=== PATIENT | female | born 1990 | race Caucasian/White ===

== ENCOUNTER 2016-11-18 22:06 | Inpatient (IN) | payer OTHER ==
[2016-11-18 22:36] LABS: % IMMATURE GRANULYOCYTES 0.3 % (0.0-1.1); ABSOLUTE IMMATURE GRANULOCYTES 0.02 10^3/uL (0.00-0.10); ADD DIFF? NO; ADD MORPH? NO; ADD SCAN? NO; ATYPICAL LYMPHOCYTE FLAG 20 (0-99); FRAGMENT RBC FLAG 0 (0-99); HEMATOCRIT 45.5 % (38.0-47.0); HEMOGLOBIN 15.4 g/dL (12.6-16.3); LEFT SHIFT FLG 0 (0-99); LIPEMIA HEMOLYSIS FLAG 90 (0-99); MEAN CELL HEMOGLOBIN 32.3 pg (27.9-34.1); MEAN CELL HEMOGLOBIN CONCENTR. 33.8 g/dL (32.4-36.7); MEAN CELL VOLUME 95.4 fL (81.5-99.8); MEAN PLATELET VOLUME 10.3 fL (8.7-11.7); PLATELET CLUMPS FLAG 0 (0-99); PLATELET COUNT 283 10^3/uL (150-400); RED BLOOD CELL COUNT 4.77 10^6/uL (4.18-5.33); RED CELL DISTRIBUTION WIDTH 11.8 % (11.5-15.2)
--- NOTE | 2016-11-18 22:46 | EDPHY ---
H & P Stated Complaint: M1 wrist lac Source: Patient Exam Limitations: No limitations - Personal History LMP (Females 10-55): IUD In [address] - Medical/Surgical History Hx Asthma: No Hx Chronic Respiratory Disease: No Hx Diabetes: No Hx Cardiac Disease: No Hx Renal Disease: No Hx Cirrhosis: No Hx Alcoholism: No Hx HIV/AIDS: No Hx Splenectomy or Spleen Trauma: No Other PMH: depression, - Social History Smoking Status: Never smoked Time Seen by Provider: 11/18/16 22:30 HPI/ROS: HPI The patient presents on an M1 hold for suicidal ideation. The patient has a history of depression for which she takes Zoloft, though has been off of it for the last 1 month. 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 She has had fleeting suicidal thoughts that became more severe this morning. She left her apartment in [place] and drove to [place] to stay at a hotel. At 10:00 a.m., she slit her left wrist with a scalp all. Because of the pain she said she had to stop. She then tried to suffocate herself using a plastic bag. She also took Tylenol 325 mg a total of 20 tabs approximately throughout the day. She eventually fell asleep and awoke when her sister was calling her. Her sister called the crisis Center here and then the patient was brought here to the emergency room. She has previous suicidal thoughts, though no attempts previously. 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 REVIEW OF SYSTEMS Constitutional: No fever, no chills. Eyes: No discharge. ENT: No sore throat. Cardiovascular: No chest pain, no palpitations. Respiratory: No cough, no shortness of breath. Gastrointestinal: No abdominal pain, no vomiting. Genitourinary: No hematuria. Musculoskeletal: No back pain. Skin: No rashes. Neurological: No headache. 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 [employer] PHYSICAL General Appearance: Alert, no distress Eyes: Pupils equal and round no pallor or injection ENT, Mouth: Mucous membranes moist Respiratory: There are no retractions, lungs are clear to auscultation Cardiovascular: Regular rate and rhythm Gastrointestinal: Abdomen is soft and non-tender, no masses, bowel sounds normal Neurological: A&O, moves all extremities Skin: Warm and dry, no rashes Musculoskeletal: Neck is supple non tender Extremities: Left wrist with 4 cm laceration which is gaping, with no active bleeding Psychiatric: Patient is oriented X 3, there is no agitation (Kaitlynn Ramirez) Constitutional: Initial Vital Signs Temperature (C) 36.7 C 11/18/16 22:08 Heart Rate 64 11/18/16 22:08 Respiratory Rate 16 11/18/16 22:08 Blood Pressure 103/69 11/18/16 22:08 O2 Sat (%) 86 L 11/18/16 22:08 O2 Delivery Mode Room Air Allergies/Adverse Reactions: No Known Allergies Allergy (Unverified 11/18/16 22:08) Home Medications: Medication Instructions Recorded Fexofenadine HCl [Lolly Allergy] 60 mg PO DAILY 11/18/16 Sertraline HCl [Zoloft 25mg (*)] 25 mg PO DAILY 11/18/16 Multivitamins [Multivitamin (*)] 1 each PO DAILY 11/19/16 Medical Decision Making Procedures: LACERATION REPAIR Procedure: Laceration repair. Verbal consent was obtained from the patient. The linear 3 cm laceration on the left wrist was anesthetized using lidocaine with epinephrine. The wound was scrubbed, draped and explored to its base with a gloved finger. There were no deep structures involved. No tendon injury was identified. . The wound was repaired with 3 horizontal mattress sutures using 4.0 nylon suture. The wound repair was simple. The procedure was performed by myself. (Kaitlynn Ramirez) ED Course/Re-evaluation: Re-evaluation 7:45 a.m.. Patient is sleeping. Awaiting placement Patient is been evaluated and accepted at [address] for inpatient psychiatric care (Matthew Bejarano) Differential Diagnosis: This is a 26-year-old female, history of depression, who presents on an M1 hold for suicidal ideation, cut her wrists earlier today, took Tylenol, and attempted to suffocate herself. She is currently feeling better. It seems that her social circumstances including lack of sleep, overwhelmed at work, away from support system have worsened her depression and led to increasing suicidal thoughts. Differential diagnosis includes suicidal ideation with depression, alcohol abuse , Tylenol overdose, asphyxiation injury. In the emergency department, labs were checked and were unremarkable. Tylenol level was elevated but not abnormal. Her laceration was repaired. She was seen by the mental health team who agrees that she requires hospitalization. At 7:00 a.m., I anticipate the case will be signed out to the oncoming provider Dr. Bejarano pending psychiatric placement. (Kaitlynn Ramirez) - Data Points Laboratory Results: Laboratory Results 11/18/16 22:31 11/18/16 22:31 Medications Given: Discontinued Medications Ibuprofen (Motrin) 600 mg PO EDNOW ONE Stop: 11/19/16 10:16 Last Admin: 11/19/16 10:21 Dose: 600 mg Departure - Departure Disposition: [facility] IP Clinical Impression: Suicidal ideation Wrist laceration Qualifiers: Encounter type: initial encounter Laterality: left Qualified Code(s): S61.512A - Laceration without foreign body of left wrist, initial encounter Condition: Fair Referrals: NONE *PRIMARY CARE P,. [Primary Care Provider] - As per Instructions
[2016-11-18 22:50] LABS: ANION GAP 11 mEq/L (8-16); CALCIUM 10.2 mg/dL (8.5-10.4); CARBON DIOXIDE 26 mEq/l (22-31); CHLORIDE 99 mEq/L (97-110); CREATININE 0.7 mg/dL (0.6-1.0); ETHANOL SERUM < 10 mg/dL (0-10); GLOMERULAR FILTRATION RATE > 60; GLUCOSE 83 mg/dL (70-100); POTASSIUM 3.4 mEq/L (3.5-5.2); SODIUM 136 mEq/L (134-144)
[2016-11-19] MEDS ORDERED: IBUPROFEN 600 MG TAB PO ONE (10:15)
[2016-11-19] MEDS ORDERED: MAG HYDROX/AL HYDROX/SIMETH 30 ML UDCUP PO PRN (18:04)
[2016-11-19] MEDS ORDERED: LORazepam 0.5 MG TAB PO PRN (18:04)
[2016-11-19] MEDS ORDERED: ACETAMINOPHEN 325 MG TAB PO PRN (18:04)
[2016-11-19] MEDS ORDERED: MAGNESIUM HYDROXIDE 30 ML UDCUP PO PRN (18:04)
[2016-11-19] MEDS ORDERED: IBUPROFEN 600 MG TAB PO PRN (18:05)
[2016-11-19] MEDS ORDERED: diphenhydrAMINE 25 MG CAP PO PRN (18:05)
[2016-11-19] MEDS ORDERED: MELATONIN 3 MG TAB PO PRN (18:06)
[2016-11-19] MEDS ORDERED: BACITRACIN OINTMENT 1 PACKET TP ONE (19:20)
--- NOTE | 2016-11-20 15:34 | GCON ---
[f rep st] CONSULTATION INTERNAL MEDICINE CONSULTATION DATE OF CONSULTATION: 11/20/2016 REFERRING PHYSICIAN: Rosi Ordoñez MD REASON FOR CONSULTATION: Medical opinion regarding stability for inpatient psychiatric [facility]. 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 She attributes the stress of residency, including lack of sleep, large workload and being away from family as leading to increasing suicidal thoughts. She left her apartment in [place], and rented a motel in [place]. In the hotel room she slit her wrists, tried to suffocate herself with a plastic bag, and took 20 tablets of Tylenol. At some point, her sister became aware of the situati on and called the crisis center, and she was brought to the emergency room. In the emergency room, she underwent a laceration repair of her wrist. There was no tendon injury. Tylenol level was not within a toxic range. She is otherwise stable an d transferred directly to inpatient psychiatry. In visiting with the patient today, she is in good spirits. Denies any recent medical concerns. PAST MEDICAL HISTORY: 1. Depression. 2. Seasonal allergies. MEDICATIONS: Please see computer record for full detailed list. ALLERGIES: No known drug allergies. SOCIAL HISTORY: No smoking. No alcohol. Lives in [place], in an apartment. 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 REVIEW OF SYSTEMS: Complete review of systems obtained. Review of systems is negative for constitu tional, HEENT, GI, pulmonary, breast, , hematology, skin, muscular, endocrine, and psych, except f or positives and negatives as in HPI. FAMILY HISTORY: Reviewed, noncontributory to presenting complaint. PHYSICAL EXAMINATION: GENERAL: Well-developed, well-nourished female, in no acute distress. VITAL SIGNS: Temperature is 36.6, pulse 69, blood pressure 109/79, satting 96% on room air. EYES: Norm al conjunctivae. Pupils equal, round, react to light. ENT: Normal ears and nose. Hearing intact. Normal lips and teeth. Oropharynx moist. NECK: Trachea midline. No thyromegaly. CHEST: Normal effort. LUNGS: Clear to auscultation bilaterally. CARDIOVASCULAR: Regular rate and rhythm. No murmur. No extremity edema. ABDOMEN: Soft, nontende r. No hepatosplenomegaly. SKIN: Warm, dry, intact. No rash. MUSCULOSKELETAL: No cyanosis or cl ubbing. Strength 5/5 upper and lower extremities. NEUROLOGIC: Cranial nerves intact. Normal sens ation to light touch. PSYCH ASSESSMENT: Alert and oriented x3. Normal affect. Normal judgment an d insight. Normal memory. LABS: White count 6.6, hematocrit 45.5, platelets 283. Sodium 136, potassium 3.4, chloride 99, bic arb 26, BUN 11, creatinine 0.7, glucose 83. MEDICAL RECORDS REVIEW: I reviewed emergency room records. In the ER, a 3 cm laceration in the lef t wrist was explored and there were no deep structures involved. No tendon injury identified. She had 3 horizontal mattress sutures. ASSESSMENT/PLAN: 1. Suicide attempt. Currently on an M1 hold. Management per psychiatry. She recently stopped her Zoloft 1 month ago. 2. Self-inflicted arm laceration, status post suturing. This is superficial and there was no evide nce of tendon damage on deeper exploration. We will continue wound care. Please notify internal me dicine if there are any signs of infection. 3. Tylenol overdose, her level in the emergency room was not high enough to warrant any further david atment. This patient is medically stable and okay to remain on inpatient psychiatry, with no further medical followup needed. Please call internal medicine to re-consult if there is any change in her medical condition. /[id number]/MODL
[2016-11-20] MEDS ORDERED: SERTRALINE HCL 25 MG TAB PO ONE (16:45)
[2016-11-20] MEDS ORDERED: BACITRACIN OINTMENT 1 PACKET TP ONE (17:22)
--- NOTE | 2016-11-20 21:40 | SOAPPROG ---
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 Woke up late 2nd time now and missed pre-rounding. [place] overwhelmed and no other options except acting on suicide. Demanding workload, poor self care (decr sleep/eating) , +neuroveg sxs of depr, very high expectations set for herself, limited support systems, impaired coping strategies all contributing. Started Zoloft 25mg today, incr to 50mg tomorrow. Suicide precautions. Still with ambivalence, 50/50 about suicide attempt failure , as now feels she has more problems, but states she can be safe on unit and recognizes need for help. Admission dictation to follow. Objective: Vital Signs Temp Pulse Resp BP Pulse Ox 36.6 C 69 14 109/79 96 11/20/16 06:00 11/20/16 06:00 11/20/16 06:00 11/20/16 06:00 11/20/16 06:00 - Time Spent With Patient Time Spent With Patient: 90min - Pending Discharge Pending Discharge Within 24 Hours: No Pending Discharge Within 48 Hours: No ICD10 Worksheet Patient Problems: Problems Problem Status Onset Suicidal ideation Acute Wrist laceration Acute
--- NOTE | 2016-11-21 00:57 | BAPA ---
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 Patient reports acute stressor was waking up late for the 2nd time and missing pre-rounding for surgical rotation. 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. A heavy workload, long working hours, erratic sleep and eating pattern contributed to inconsistent and noncompliance with Zoloft, increase in depressive symptoms/neurovegetative symptoms. Depression more acutely worsened over the past 3 weeks including suicidal ideation and having made a plan to cut self about 2 weeks ago, as noted below, but did not attempt. Patient reports a chronic history of intermittent suicidal ideation, especially when feeling depressed or anxious, but no history of prior attempts and no history of ever making specific plans to harm herself until recently. 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 She reports having taken a scalpel and lidocaine and syringes, which she took home, but did not have act on any self-harm. Toward the end of the rotation, she reports having a "blanco weekend" with 2 days off, having had a good day Monday hiking with others, however, found herself lying on the floor and crying all day Monday. At this point, she made the suicidal plan, but did not act on it. Over the past week and a half, she has been on a surgery rotation at [facility], arriving at 5 a.m. to pre-round and staying until 9 or 11 p.m. Technically, her work hours are supposed to be 6 a.m. to 6 p.m. and no more than 80 hours per week, but she often far exceeded this. Sleep was poor and erratic, with 2-3 hours on the couch, and then 2-3 hours in bed. On work days, she had been missing breakfast, and often forgot or did not have time to eat lunch, and does try to eat some dinner. Admits with her depressed mood, she has been having difficulty concentrating, forgetful at times (affecting work), poor appetite, low energy, guilt, suicidal ideation, poor sleep. She admits "I hold myself to an unattainable standard", but feels this is ingrained, especially feeling worried about what her family will think if she is not successful. Due to feeling so tired and forgetful, she left her phone at the hospital 1 day prior to admission, woke up late, feeling panicked with thoughts racing and worried about work, noting it was 6:30am and that she should have been in to work at 5 a.m. At this point, suicidality acutely increased, feeling "I can't do this anymore" with initial suicidal thoughts of jumping from her [address]. She did, however, worry that if this was not successful that she would end up hospitalized in the [place] system and may be among fellow residents or colleagues, therefore, she drove herself to [place] and checked herself into the 1st hotel she came to. This was around 10 a.m. on 11/18. She did take with her the scalpel and topical anesthetic, as well as her Tylenol bottles and proceeded to make a vertical laceration on her wrist. She stated she nicked a nerve a few times, which "jolted me", and found cutting to be too painful so she aborted this attempt. She fell asleep exhausted also after having taken approximately 20 tablets of 325 mg Tylenol over the course of a couple of hours. Upon awakening in the evening, she again experienced distress about her perceived hopeless situation and attempted to asphyxiate herself by placing a plastic bag around her head and securing it with paper tape. The feeling of suffocation was also not tolerable, so she pulled the bag off her head, but did try this one more time with the same result, aborting attempt. She considered taking more Tylenol, but then also thought "liver failure is a bad way to ." At this point "in a moment of clarity", she called her sister crying and sister kept her on the phone as sister's natalie contacted the crisis hotline in [place]. To [employer] copier operator, she did state that her current plan would be to jump off a high building. She denied any history of lacie or hypomania, no history of psychotic symptoms, or any history of trauma or abuse, except perhaps emotional neglect growing up. PAST PSYCHIATRIC HISTORY: Patient reports some chronic dysphoria during school years, including being emotionally affected by maternal grandfather's focus on success making one worthy. Decisions she made seemed often with the thought of trying to maintain his approval. She recalls 1st feeling depressed and having passive suicidal ideation when in college during her sophomore year. She reports having no real friends in college, and felt upset by less than A grades , but she just pushed through her depressive symptoms during that time. She 1st saw a psychologist during 1st year medical school around May of 2012 with neurovegetative symptoms and having lost weight to 98 pounds when normally she ranges 100-110 pounds. Psychologist met with her 1 time per week for a month, then frequency decreased. She had to change therapists during 2nd year medical school and began seeing a therapy student services dean. By the 3rd and 4th medical school years, she did not have time for therapy, and due to increased depression, she requested Zoloft from a family practitioner, who then "did a depression screen, which was positive" and started her on 25 mg daily. She took this dose for 2 years, having her BLADE BENDER FURNACE TENDER/primary care renew this prescription, but never seeing psychiatrist or having any further therapy followup during this time. 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 She admits to difficulty with consistent medication compliance. But she felt Zoloft even at low dose 25 mg daily helped "decrease spiraling thoughts and decreased the severity of my thoughts when they go to a bad place. " She does note that her maternal grandfather during her 2nd year of medical school, and this had a surprisingly greater impact on her than she would have thought. He apparently was very "strict" and highly critical of anyone not successful, stating he believed that success and achievement were more important than happiness. She noted his strong disapproval of her older sister choosing to become a rodriguez instead of an environmental engineer scientist, and how this negatively impacted her sister's relationship with the family. She did not want to suffer the same chastisement by her family by not being successful in their eyes. SAFETY HISTORY: No history of harm to others or thoughts to harm others. Chronic suicidal ideation intermittently, since college years. Admits more recently suicidal ideation was "almost always there", but became more acute and intense over the past 2 weeks with planning and attempt as noted in HPI. Admits suicidal ideation occurs when feeling particularly depressed or anxious or stressed, "when things get bad and usually when I am alone." PAST MEDICAL HISTORY: No significant medical or surgical history. No history of traumatic brain injury. Patient does have an IUD, states because difficulty with pill compliance. ALLERGIES: No known drug allergies. Positive seasonal allergies. SUBSTANCE USE HISTORY: Denies history of smoking tobacco or marijuana. Drinks socially and infrequently, consuming 2 beers or 2 glasses of wine. Last drink was 1 beer socially 1 week prior to admission. FAMILY HISTORY: The patient thinks mother has depression and anxiety, but has never been diagnosed. Sister had a depressive episode related to a situational stressor with a boyfriend, and at one point thought she was manic because she was not sleeping. Sister has never been diagnosed with any mental health disorder and has never taken any medication. Patient has an uncle who was alcoholic and another distant relative with schizophrenia. LEGAL HISTORY: None. SOCIAL HISTORY: Patient lives alone in a high-rise studio apartment in [place] with her cat. She completed medical school at [employer] in [place] (noting that her grandfather responded "well, its not [place]"). Has a sister who is 3 years older living in [place] with her fiance and soon to open a restaurant. Patient's parents are both alive and together, also living in [place]. She feels very close to her sister, feels that her father is "blissfully unaware " and not actively emotionally supportive, nor engaged much with her life. Mother is more involved, but not emotionally close or supportive. Patient notes having made no friends yet in residency, also no friends in college "just acquaintances". She has one close friend since childhood named Hanna and 2 close friends from medical school, who are out of state that she maintains contact with. She reports not matching for residency during initial match, but filled an open spot in [place] on a preliminary media relations intern year. 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 She does not identify as spiritual or mu-ism, and told TLC copier operator that she enjoys spending time with her cat, journaling, playing piano, playing volley ball, cooking and being outdoors. MENTAL STATUS EXAM ON ADMISSION: Patient was an [place] female appearing stated age, casually dressed, well kempt and groomed with good eye contact, wearing glasses. Speech rate and volume were normal. Patient was appropriately engaged in conversation. Mood was depressed. Affect was quite restricted and dysphoric, but smiling appropriately at times. She denied any current suicidal thoughts, plan or intent, however, admitted to "50/" regarding her feelings around suicide attempt being unsuccessful. She noted awareness that her stressors did not change and now has an additional stressor of being hospitalized. The patient did state she felt that if she were to return to her rotation, she believes she could do the work, but "it would only be a matter of time" before she would have ended up in the hospital anyway. Stating this, she does recognize the need for mental health treatment and for her current hospitalization. She denied any psychotic symptoms or history of such. She denied any thoughts of harming others. Thoughts were goal directed and linear. There was no evidence of delusions or psychosis. Insight was good , judgment is fair. Cognition was intact. IMPRESSION: Major Depressive Disorder, recurrent, severe status-post suicide attempt Rule out Chronic Dysthymic Disorder underlying Additional stressors including no support system locally, work/employment stressors PLAN: Admitted to [address] [place] [address] psychiatry unit, continued on M1 hold and placed on suicide precautions. Patient does contract to be safe on the unit. She does feel journaling is helpful, and will be provided with materials to continue with this therapeutic activity. Has not been attending groups, so group attendance and participation was encouraged. Reports her sister and mother have flown in from [place] and have been visiting on the unit. She is glad for this support, however, does not feel she can talk with her mother about what's been going on, feeling it would be too upsetting for her mother and prefers to talk with her sister. It was recommended that a family meeting occur with patient on the unit if this is determined to be of benefit. Patient does agree to resume medications for depression. Options were discussed including Prozac due to long half life given her history of inconsistence and noncompliance. Other option is resuming Zoloft and increasing to more therapeutic range as this medication was beneficial in the past per her report. Patient ultimately chose to resume Zoloft since she is familiar with this medication and does feel she will take compliance more seriously given recent events. This includes keeping medication by her toothbrush, and having a consistent provider to prescribe on an outpatient basis. Patient will be trying to decide what her next step is regarding continuing with her program or taking a break. She feels that the director of program management will be sympathetic and helpful. It was suggested to her that she contact director of program management during her hospital stay and begin to explore her options Will order melatonin 3 mg q.h.s. p.r.n. and Benadryl 25 mg p.o. q.h.s. p.r.n. if any difficulty sleeping while on inpatient psychiatric unit. Encouraged eating regular meals and regular sleep during hospitalization. May need to explore if any tendency toward eating disorder present, although does not seem likely given her history and rather secondary to depression, but she does report losing weight and has been down to 98 pounds in the past during an episode of depression. Patient states mother and sister have been staying in her apartment in [place]. She reports they have secured her Tylenol bottles, but again this will need to be verified. Patient will be provided with a safety plan to complete. We discussed possible options related to current M1 status, this will need to be addressed tomorrow. Patient is aware of options and that discharge after M1 hold will be unlikely, as recommended as she will likely need several days in hospital to gain more therapeutic benefit, increase medication to more therapeutic range, and have outpatient followup arranged. Would likely benefit from IOP for DBT on an outpatient basis. Presently patient is felt to be at elevated risk of self-harm. Estimated length of stay 3-5 days /[id number]/MODL MTDD
[2016-11-21 06:31] VITALS: TEMP 98.1
[2016-11-21] MEDS: SERTRALINE HCL 50 MG TAB PO SCH (10:06)
--- NOTE | 2016-11-21 15:20 | SOAPPROG ---
SOAP Progress Note Assessment/Plan: Assessment: Plan: 11/21/16 15:21 Improved. Experiencing some relief from what she perceived to be insurmountable circumstances. Will continue Zoloft 50mg and arrange family meeting for tomorrow. Convert to voluntary status. Subjective: Pt seen, discussed with staff. Reports feeling "better" today. Slept well, feels rested. We discussed at length the events preceding admission and the pattern that led up to her suicide attempt. She reports feeling "desperate" about what seemed like unchangeable circumstances at work. She also notes feeling powerless to advocate for herself. The good day she had on Monday caused her to dread returning to work even more on Monday and led to a whole day "break down" on Monday. This continued through the week and crescendoed with oversleeping on Monday. She continues to feel overwhelmed at the prospect of making changes, but is encouraged that she has let people know directly or indirectly how she is feeling. She is agreeable to a family meeting with her mother and sister tomorrow. Objective: Vital Signs Temp Pulse Resp BP Pulse Ox 36.7 C 75 16 97/54 L 96 11/21/16 06:00 11/21/16 06:00 11/21/16 06:00 11/21/16 06:00 11/21/16 06:00 MSE: Well-groomed, pleasant and coop. Affect is somewhat constricted, anxious , stable and appropriate. Mood is "better." TP linear. TC reveals no psychosis. Denies active SI at this time. - Time Spent With Patient Time Spent With Patient: 35" ICD10 Worksheet Patient Problems: Problems Problem Status Onset Suicidal ideation Acute Wrist laceration Acute
[2016-11-22] MEDS: SERTRALINE HCL 50 MG TAB PO SCH (09:00)
[2016-11-22] MEDS ORDERED: CALCIUM CARBONATE 500 MG CHEWABLE TAB PO PRN (12:02)
--- NOTE | 2016-11-22 16:33 | SOAPPROG ---
SOAP Progress Note Assessment/Plan: Assessment: Plan: 11/21/16 15:21 Improved. Experiencing some relief from what she perceived to be insurmountable circumstances. Will continue Zoloft 50mg and arrange family meeting for tomorrow. Convert to voluntary status. 11/22/16 16:34 Continued improvement. CCM. Continue active d/c planning. Subjective: Pt seen, discussed with staff. Reports improved mood, good sleep. Interviewed pt alone and with mother and sister present in family meeting. We reviewed the circumstances surrounding admission including processes leading up to suicide attempt. Emphasized need for ongoing open communication to limit need to "blow things up" due to being stuck/defensive/ashamed. Pt states she feels safe. Relieved by talking to her television program director. She reports being able to follow up with an assistance program through the residency program. Objective: Vital Signs Temp Pulse Resp BP Pulse Ox 36.7 C 79 14 96/66 L 96 11/22/16 06:00 11/22/16 06:00 11/22/16 06:00 11/22/16 06:00 11/22/16 06:00 MSE: Calm, coop. Appropriately interactive with myself and family. Affect is bright, stable, approp. Mood is "good." TP linear. TC reveals no psychosis. Denies SI. I/J appear good. - Time Spent With Patient Time Spent With Patient: 55" ICD10 Worksheet Patient Problems: Problems Problem Status Onset Suicidal ideation Acute Wrist laceration Acute
[2016-11-23 06:55] VITALS: BP 94/55; PULSE 88; RESP 16; O2SAT 97
[2016-11-23] MEDS: SERTRALINE HCL 50 MG TAB PO SCH (09:16)
--- NOTE | 2016-11-24 18:27 | BDS ---
[f rep st] [facility] DISCHARGE SUMMARY REASON FOR ADMISSION: Patient is a 26-year-old female who was admitted after presenting to the emergency department via EMS. 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 She states that this built up for her to the point where she felt like she was overwhelmed and lacked support. She then overslept and missed rounds on Monday morning, and found herself at risk of being in more serious trouble. She then drove to [place] from her apartment in [facility], where she got a room with the intention of killing herself. She states that she injected her wrist with lidocaine and then surgically opened it with a scalpel with intention of cutting the artery. She nicked a nerve which was painful, and then the entire process was very painful, so she changed her mind. She then put a plastic bag around her neck with tape twice in order to try to asphyxiate herself, was unable to tolerate this, either. She took a number of Tylenol pills through the procedure as well, and after her 2nd failed asphyxiation, fell asleep. When she woke up, she called her sister, who got her in contact with EMS. She had been missing for some period of time at this point, and her program had called her parents who were very worried about her as a missing person. A full description of the events preceding admission found in Dr. Ordoñez' admission note dated 11/20/2016. ADMITTING DIAGNOSES: Per Dr. Ordoñez, major depressive disorder, recurrent, severe, status post suicide attempt. Rule out dysthymic disorder. Lack of local supports, and work stressors. ADMITTING PHYSICAL EXAMINATION: Performed by Dr. Rajni Brown showed the arm laceration that was clean and dry. No other injuries or acute findings. ADMISSION LABORATORY: CBC was normal including a normal H and H at 15.4 and 45.5. Serum chemistries showed a potassium slightly down at 3.4, otherwise normal. Urine test was negative. Urine toxicology showed no substances of abuse. Acetaminophen level was 19, alcohol was less than detectable. HOSPITAL COURSE: Patient was admitted to the [facility] inpatient unit on an M1 hold. She was pleasant, cooperative, interactive and forthcoming of information. I saw her after she had already been interviewed twice, and she was cooperative in relating her history again. She described these events as mentioned above, and that she was feeling that she had no options. She felt that she was going to disappoint her family, and that there was essentially no way out of this dilemma without major repercussions. She states that she struggles to communicate openly with her family and feels a lot of shame and guilt if she is not perfect. She was restarted on Zoloft at 25 and then [address] Ordoñez, as she had had good effect from this in the past, and was tolerating it well. She was agreeable to continuing it. I met with the patient in individual psychotherapy on a daily basis and also was able to convene a family meeting in person with her mother and sister and her, as well as a family meeting with her and her father via phone. These went very well and her family displayed supportive and appropriate behaviors, and the patient was relieved by this. 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 She was relieved, seemingly, by the option of being able to reach out and communicate with her family, whom she sees as supportive. Patient's hospitalization was uncomplicated. She was restarted on Zoloft and participated actively in all requested therapies. Her family was supportive and the plan was for her sister to stay with her after discharge for some amount of time. She had appointments with the [facility] as well as some professional assistance through her residency program. They also were placing her on medical leave, and this eliminated a lot of her acute stress. She was relieved that they did not simply dismiss her from the program , though was realistic about the potential for this. CONDITION AT DISCHARGE: Stable. Her affect was euthymic, stable and appropriate. She was voicing no thoughts of suicide. She was tolerating her medicines well with no side effects. She was forward thinking and hopeful. DISCHARGE DIAGNOSES: Major depressive disorder, recurrent, severe, without psychosis. Status post high lethality suicide attempt. Lack of natural supports. Occupational stress. DISPOSITION: Patient left the hospital with her family, to return to her apartment. Her sister will be staying at her apartment with her for the near future. FOLLOWUP: With [facility] as scheduled by [facility] Room Working Supervisor , and with the assistance program through the residency. LEGAL COURSE: Patient was converted to a voluntary status at the expiration of her M1 hold. /[id number]/MODL MTDD
== END 2016-11-23 15:10 | disposition home or self-care (01) | DRG 885 ==
LOC: BBEH 11-19 16:55
PROVIDERS: ADMIT Psychiatry & Neurology Behavioral Neurology & Neuropsychiatry; ATTEND Psychiatry & Neurology Behavioral Neurology & Neuropsychiatry
PROC: 0HQEXZZ Repair Left Lower Arm Skin, External Approach (ICD-10-PCS; principal; 2016-11-19)
DX: F33.2 Major depressive disorder, recurrent severe without psychotic features (principal); S61.512A Laceration without foreign body of left wrist, initial encounter; X78.8XXA Intentional self-harm by other sharp object, initial encounter; T39.1X2A Poisoning by 4-Aminophenol derivatives, intentional self-harm, initial encounter
CPT/HCPCS: 80305; G0480